=== PATIENT | female | born 1955 | race Two or more races ===

== ENCOUNTER 2023-09-12 06:50 | Day surgery (SDC) | payer OTHER ==
[2023-09-11 10:51] LABS: URINE APPEARANCE Clear; URINE BILIRRUBIN Negative (NEGATIVE); URINE BLOOD Negative; URINE COLOR Yellow; URINE GLUCOSE Negative (NEGATIVE); URINE KETONE Negative (NEGATIVE); URINE LEUKOCYTE Negative; URINE NITRATE Negative; URINE PROTEIN Negative (NEGATIVE); URINE UROBILINOGEN 0.2 E.U./dl
[2023-09-11 10:55] LABS: URINE BACTERIA 7.5 uL (0.0-1933); URINE RBC 7.6 uL (0.0-20.8)
[2023-09-11 10:57] LABS: URINE WBC 0.1 uL (0.0-23.2)
[2023-09-11 10:58] LABS: HEMATOCRIT 39.8 % (36.0-45.00); HEMOGLOBIN 13.6 g/dL (12.0-15.00); MEAN CELL VOLUME 90.4 fL (80.00-100.00); MEAN CORPUSCULAR HEMOGLOBIN 30.8 pg (27.00-32.0); MEAN CORPUSCULAR HGB CONC 34.1 g/dl (32.0-36.0); PLATELET COUNT 229 K/uL (150-450); RED CELL DISTRIBUTION WIDTH 13.4 % (11.5-14.5)
[2023-09-11 10:59] LABS: INR 1.14; PARTIAL THROMBOPLASTIN TIME 26.9 SECONDS (22.0-34.0); PROTHROMBIN TIME 11.9 SECONDS (9.0-11.5)
[2023-09-11 11:30] LABS: ALBUMIN 3.9 gm/dL (3.4-5.0); BILIRUBIN TOTAL 0.46 mg/dL (0.3-1.2); CALCIUM 9.4 mg/dL (8.5-10.1); CREATININE SERUM 0.47 mg/dL (0.55-1.02); GFR 132.17; GLOBULINA 3.6 G/DL (2.4-3.5); POTASSIUM 4.34 mEq/L (3.5-5.1); TOTAL PROTEIN 7.5 gm/dL (6.4-8.2)
[~2023-09-12 06:50] MED LIST: LIPITOR40 MG PO; OXYC1TAB9 PO; PROLIA60 MG/1 ML SUBCUTANEO
[2023-09-12] MEDS ORDERED: CLINDAMYCIN PHOSPHATE 150 MG/ML (900mg) IV SCH (09:30)
[2023-09-12] MEDS ORDERED: CLINDAMYCIN PHOSPHATE 150 MG/ML (900mg) ONE (09:47)
[2023-09-12] MEDS ORDERED: LIDOCAINE HCL 1%/EPINEPHRINE 20ML VIAL IJ ONE (12:04)
[2023-09-12] MEDS ORDERED: TRAM1TAB98 PO (12:04)
[2023-09-12] MEDS ORDERED: HEPARIN SODIUM,PORCINE 500 UNITS/5 ML VIAL IV ONE (12:07)
== END 2023-09-12 14:20 | disposition home or self-care (01) ==
LOC: CIR.AMB 06:50
PROVIDERS: ATTEND Surgery
DX: C21.1 Malignant neoplasm of anal canal (principal); Z86.010 Personal history of colon polyps; Z88.0 Allergy status to penicillin; E78.00 Pure hypercholesterolemia, unspecified
CPT/HCPCS: 36561; C1751

== ENCOUNTER 2024-11-18 06:00 | Day surgery (SDC) | payer OTHER ==
[2024-11-16 09:03] LABS: BASO % 0.5 % (0.1-1.2); EOS # 0.08 (0.04-0.54); EOS % 2.1 % (0.7-7.0); LYMPH # 1.12 (1.18-3.74); LYMPH % 29.2 % (19.3-53.1); MEAN PLATELET VOLUME 10.10 fl (9.4-12.4); MONO # 0.25 (0.24-0.82); MONO % 6.5 % (4.7-12.5); NEUT # 2.35 (1.56-6.13); NEUT % 61.4 % (34.0-71.1); RED CELL DISTRIBUTION WIDTH 12.7 % (11.6-14.4)
[2024-11-16 09:05] LABS: URINE APPEARANCE Clear; URINE BILIRRUBIN Negative (NEGATIVE); URINE BLOOD Negative; URINE COLOR Yellow; URINE GLUCOSE Negative (NEGATIVE); URINE KETONE Negative (NEGATIVE); URINE LEUKOCYTE Negative; URINE NITRATE Negative; URINE PROTEIN Negative (NEGATIVE); URINE UROBILINOGEN 0.2 E.U./dl
[2024-11-16 09:06] LABS: URINE BACTERIA 6.0 uL (0.0-1933); URINE RBC 13.4 uL (0.0-20.8)
[2024-11-16 09:25] LABS: URINE CAST 0.00 uL (0.0-1.40); URINE EPITHELIAL CELLS 0.1 uL (0.0-38.8); URINE WBC 0.4 uL (0.0-23.2)
[2024-11-16 09:30] LABS: INR 1.1
[2024-11-16 09:48] LABS: ALT/SGPT 16.0 U/L (12-78); AST/SGOT 10.0 U/L (15-37); BILIRUBIN TOTAL 0.38 mg/dL (0.3-1.2); BUN CREA RATIO 25.0 (7.0-25.0); CREATININE SERUM 0.52 mg/dL (0.55-1.02); GFR 117.26; GLOBULINA 3.7 G/DL (2.4-3.5); GLUCOSE FASTING 90.0 mg/dL (65-100); OSMOLALITY SERUM 283.0 MOSM/KG (275-295)
[~2024-11-18 06:00] MED LIST changes: +CLINDAMYCIN PHOSPHATE 150 MG/ML (900mg) IV SCH; +TRAM1TAB98 PO
[2024-11-18] MEDS ORDERED: LIDOCAINE HCL 1%/EPINEPHRINE 20ML VIAL IJ ONE (07:03)
[2024-11-18] MEDS ORDERED: BUPIVACAINE HCL/MPF 0.5% 30ML VIAL ONE (07:03)
[2024-11-18] MEDS ORDERED: CLINDAMYCIN PHOSPHATE 150 MG/ML (900mg) ONE (07:11)
[2024-11-18] MEDS ORDERED: TRAMADOL HCL50 MG PO (10:02)
== END 2024-11-18 13:40 | disposition home or self-care (01) ==
LOC: CIR.AMB 06:00
PROVIDERS: ATTEND Surgery
DX: T82.594A Other mechanical complication of infusion catheter, initial encounter (principal); C21.1 Malignant neoplasm of anal canal; Z88.0 Allergy status to penicillin